=== PATIENT | female | born 1965 | race Caucasian/White ===

== ENCOUNTER 2017-01-09 09:20 | Day surgery (SDC) | payer OTHER ==
[2016-12-30 12:24] VITALS: BMI 27.9
--- NOTE | 2017-01-09 07:30 | HP ---
History & Physical Update - History History: No Change - Physical Physical: No Change - Assessment Assessment: No Change - Plan Plan: No Change (Here today for elective repair of her cervical stenosis (C5-C6 ) and associated radicular pain. This is my first time meeting the patient. I informed her that I will be assisting Dr. Natarajan today. She is fine with it.)
[2017-01-09] MEDS ORDERED: ONDANSETRON 4 MG/2 ML VIAL IVPUSH PRN (10:26)
[2017-01-09] MEDS ORDERED: PROMETHAZINE HCL 25 MG/1 ML VIAL IVPUSH PRN (10:26)
[2017-01-09] MEDS ORDERED: CEFAZOLIN 2 GM in DEXTROSE 5%-WATER - 100 ML IVPB ONE (10:32)
[2017-01-09] MEDS: oxyCODONE HCL 10 MG SUSTAINED ACTING TABLET PO STA (10:40)
[2017-01-09] MEDS ORDERED: GELATIN, ABSORBABLE 100 EACH SPONGE TP ONE (11:04)
[2017-01-09] MEDS ORDERED: LIDOCAINE 1%-EPI 1:100,000 30 ML MDV IJ ONE (11:04)
[2017-01-09] MEDS ORDERED: THROMBIN (BOVINE) 5,000 UNIT VIAL TP ONE (11:04)
[2017-01-09] MEDS ORDERED: PROPOFOL 20 ML ONE ×10 (11:23→12:59)
[2017-01-09] MEDS ORDERED: MIDAZOLAM HCL 2 MG/2 ML SINGLE DOSE VIAL ONE (11:23)
[2017-01-09] MEDS ORDERED: ROCURONIUM BROMIDE 50 MG/5 ML VIAL ONE (11:23)
[2017-01-09] MEDS ORDERED: LIDOCAINE HCL/PF 2% SDV 5ML VIAL ONE (11:24)
[2017-01-09] MEDS ORDERED: ceFAZolin SODIUM 1 GM VIAL ONE (11:46)
[2017-01-09] MEDS ORDERED: ONDANSETRON 4 MG/2 ML VIAL ONE (11:51)
[2017-01-09] MEDS ORDERED: KETOROLAC TROMETHAMINE 30 MG/1 ML VIAL ONE (11:51)
[2017-01-09] MEDS ORDERED: DEXAMETHASONE SOD PHOSPHATE 4 MG/1 ML VIAL ONE (11:51)
[2017-01-09] MEDS ORDERED: HYDROmorphone HCL/PF 1 MG/ML VIAL (FOR PYXIS CHARGING ONLY) ONE (11:56)
[2017-01-09] MEDS ORDERED: PHENYLEPHRINE HCL 10 MG/1 ML SINGLE DOSE VIAL ONE (12:15)
[2017-01-09] MEDS ORDERED: ONDANSETRON 4 MG/2 ML VIAL IVPB PRN (13:54)
[2017-01-09] MEDS ORDERED: oxyCODONE HCL 5 MG TABLET PO PRN ×2 (13:54)
[2017-01-09] MEDS ORDERED: morphine CARPU-JECT 4 MG/1 ML DISP.SYRIN IVPUSH PRN (13:54)
[2017-01-09] MEDS ORDERED: ACETAMINOPHEN 1000 MG/100 ML VIAL (NON FORMULARY) IVPB PRN (13:56)
[2017-01-09] MEDS ORDERED: diazePAM 5 MG TABLET PO PRN (13:56)
[2017-01-09] MEDS ORDERED: METAXALONE 800 MG PO PRN (13:57)
[2017-01-09] MEDS ORDERED: LACTATED RINGERS SOLUTION 1,000 ML IV SCH (14:00)
--- NOTE | 2017-01-09 14:02 | OP ---
Operative Note - Note: Operative Date: 01/09/17 Pre-Operative Diagnosis: Cervical stenosis C5-C6 with radiculopathy Operation: ACDF C5-C6 with neuromonitoring Post-Operative Diagnosis: Same as Pre-op Surgeon: Mil Natarajan [facility] Counsel: Jabari Morales Anesthesiologist/USER EXPERIENCE RESEARCHER: Kitty Darby Anesthesia: General Specimens Removed: C5-C6 disc Estimated Blood Loss (mls): 5 Fluid Volume Replaced (mls): 900 Operative Report Dictated: Yes
--- NOTE | 2017-01-09 14:04 | SURG ---
Surgery Banding Machine Operator Note Banding Machine Operator: Jabari Morales PA-C Date of Service: 01/09/17 Diagnosis: Cervical stenosis with radiculopathy Procedure: Anterior cervical discectomy with fusion C5-C6 under neuromonitoring I was present for the entirety of the operative procedure. For further detail, please refer to operative report. Visit type - Case Type Case Type: Scheduled Admission - New patient This patient is new to me today: Yes Date on this admission: 01/09/17
[2017-01-09] MEDS ORDERED: diazePAM CARPU-JECT 10 MG/2 ML DISP.SYRIN ONE (14:25)
[2017-01-09] MEDS: diazePAM CARPU-JECT 10 MG/2 ML DISP.SYRIN IVPUSH ONE (14:27)
[2017-01-09] MEDS: metFORMIN HCL 500 MG TABLET (FP) PO SCH (16:30)
[2017-01-09] MEDS: CEFAZOLIN 1 GM/D5W 50 ML IVPB SCH (18:36)
[2017-01-09] MEDS ORDERED: ATORVASTATIN CA 20 MG TABLET (FP) PO SCH (22:00)
[2017-01-09] MEDS ORDERED: FLUTICASONE PROP 0.05% 16 GM NASAL SPRAY NS SCH (22:00)
[2017-01-10 02:04] VITALS: TEMP 98.3
[2017-01-10] MEDS: CEFAZOLIN 1 GM/D5W 50 ML IVPB SCH (02:19)
[2017-01-10 06:17] VITALS: BP 126/58; PULSE 74
[2017-01-10] MEDS: metFORMIN HCL 500 MG TABLET (FP) PO SCH (06:17)
--- NOTE | 2017-01-10 07:56 | OP ---
DATE OF OPERATION: 01/09/2017 PREOPERATIVE DIAGNOSIS: Cervical stenosis C5-C6. POSTOPERATIVE DIAGNOSIS: Cervical stenosis C5-C6. PROCEDURE PERFORMED: 1. Anterior cervical discectomy and fusion C5-C6. 2. Placement of instrumentation. 3. Placement of prosthetic cage. SURGEON: Mil Natarajan MD SURGICAL RN: EDDIE Borjas ESTIMATED BLOOD LOSS: 50 mL. IV FLUIDS: Per Anesthesia. ANESTHESIA: General. COMPLICATIONS: None. DISPOSITION: Patient brought to the PACU in stable condition. INDICATIONS FOR SURGERY: The patient is a 51-year-old female who has been suffering from pain from her neck down to her right arm. X-rays and MRI were completed, which noted that she had a cervical stenosis at C5-C6. She had gone through an exhaustive course of treatment which included medications, physical therapy, as well as injections. Unfortunately, her pain continued to persist despite all this. At this point, risks, benefits, and alternatives were discussed, and the patient consented to surgery. OPERATIVE NOTE: Patient was brought into the operating room by the Anesthesia staff. After appropriate patient identification was performed, general anesthesia was administered. Appropriate anesthetic lines were placed, SCDs were placed on the patient, neuromonitoring leads were attached. She was placed supine on the OR bed with her arms tucked into the sides. A shoulder roll was placed underneath the shoulder to the point that she could tolerate in the preoperative holding area. A needle was taped onto her neck to juan off the C5-C6 level. An x-ray was taken to confirm this was correct. The needle was removed, and 10 mL of lidocaine with epinephrine was injected into her neck at this time. Her neck was prepped and draped in the usual sterile manner. At this point, a time-out was completed. An incision was made in the left side of her neck. Dissection was carried down to the platysma. The platysma was cut in line with the skin incision. Next, internally rotated sternocleidomastoid as well as strap muscles was developed. Next, an internally rotated carotid sheath as well as trachea esophagus was developed. Peanuts were used to elevate off the prevertebral fascia. A needle was placed into the C5-C6 disc. An x-ray was taken to confirm this was correct. The needle was removed. [place] pins were placed into the body of C5 and placed into the body of C6. A knife was used to incise the disc, and distraction was applied. At this point, the microscope was brought in. Using a series of pituitaries, Kerrrisons, and curettes, a discectomy was completed. The endplates were decorticated at this time. A size 7 cage filled with bone graft was placed in. [place] pins were removed. A screw was placed in the body of C5. A screw was placed into the body of C6. AP and lateral x-rays confirmed the instrumentation to be in good position. Final tightening was performed. The platysma was closed with 2-0 Vicryl suture. Skin was closed with 3-0 Monocryl suture. Dermabond was applied. Steri-Strips were applied. Sterile dressings were applied. Patient was placed supine on the OR bed, extubated in the OR, and brought to the PACU in stable condition. Jacques [id number]
--- NOTE | 2017-01-10 08:28 | DS ---
Physical Exam: SUBJECTIVE: Patient seen and examined states that her right arm pain is improved. OBJECTIVE: Vital Signs Temperature 98.3 F 01/10/17 06:15 Pulse Rate 74 01/10/17 06:15 Respiratory Rate 18 01/10/17 06:15 Blood Pressure 126/58 01/10/17 06:15 O2 Sat by Pulse Oximetry (%) 100 01/10/17 06:15 PHYSICAL EXAM GENERAL: The patient is awake, alert, and fully oriented, in no acute distress. HEAD: Normal with no signs of trauma. NECK: Trachea midline, full range of motion, supple. Dressing removed and area c /d/i with steri-strips. No ecchymosis or swelling noted. No stridor. LUNGS: Breath sounds equal, clear to auscultation bilaterally, no wheezes, no crackles, no accessory muscle use. HEART: Regular rate and rhythm, S1, S2 without murmur, rub or gallop. EXTREMITIES: 2+ pulses, warm, well-perfused, no edema. No calf tenderness. NEUROLOGICAL: Process Treater strength equal b/l. shrugs shoulder symmetrical. Normal speech, gait not observed. PSYCH: Normal mood, normal affect. SKIN: Warm, dry, normal turgor, no rashes or lesions noted. POC Glucometer 118 UNITS (()) 01/09/17 13:36 HOSPITAL COURSE: Date of Admission:01/09/17 Date of Discharge: 01/10/17 The patient was admitted to the Med-Surg Unit after an elective repair of their cervical stenosis. Now, s/p anterior cervical fusion C5-C6. The day of surgery, the patient ambulated the hallways with assistance. Narcotic and non-narcotic pain management control was achieved with an oral and IV approach. POD #1, the surgical drain was removed fully intact and without incident. An xray was obtained and confirmed hardware placement at C5-C6, no fractures or dislocations. Yari-operative IV ABX were administered. DVT prophylaxis was achieved with SCDs and early ambulation. The patient ambulated with Physical Therapy and no services were recommended upon discharge. Narcotic scripts and or muscle relaxants were checked with [employer] prior to escibe. The discharge instructions and an oral pain management plan were reviewed with the patient. All questions answered. Above plan discussed with Dr. Natarajan and agreed. Minutes to complete discharge: 20 <Metzen,Moon - Last Filed: 01/11/17 14:06> Physical Exam: SUBJECTIVE: Patient seen and examined OBJECTIVE: Vital Signs Temperature 98.3 F 01/10/17 06:15 Pulse Rate 74 01/10/17 06:15 Respiratory Rate 18 01/10/17 09:00 Blood Pressure 126/58 01/10/17 06:15 O2 Sat by Pulse Oximetry (%) 100 01/10/17 09:00 PHYSICAL EXAM GENERAL: The patient is awake, alert, and fully oriented, in no acute distress. HEAD: Normal with no signs of trauma. EYES: PERRL, extraocular movements intact, sclera anicteric, conjunctiva clear. ENT: Ears normal, nares patent, oropharynx clear without exudates, moist mucous membranes. NECK: Trachea midline, full range of motion, supple. LUNGS: Breath sounds equal, clear to auscultation bilaterally, no wheezes, no crackles, no accessory muscle use. HEART: Regular rate and rhythm, S1, S2 without murmur, rub or gallop. ABDOMEN: Soft, nontender, nondistended, normoactive bowel sounds, no guarding, no rebound, no hepatosplenomegaly, no masses. EXTREMITIES: 2+ pulses, warm, well-perfused, no edema. NEUROLOGICAL: Cranial nerves II through XII grossly intact. Normal speech, gait not observed. PSYCH: Normal mood, normal affect. SKIN: Warm, dry, normal turgor, no rashes or lesions noted. LABS CBC,CMP POC Glucometer 118 UNITS (()) 01/09/17 13:36 HOSPITAL COURSE: Date of Admission:01/09/17 Date of Discharge: 01/12/17 The patient was admitted to the Med-Surg Unit after an elective repair of their herniated disc. Now, s/p ACDF . The day of surgery, the patient ambulated the hallways with assistance. Narcotic and non-narcotic pain management control was achieved with an oral and IV approach. POD #1, the surgical drain was removed fully intact and without incident. An xray was obtained and confirmed hardware placement at C5-6, no fractures or dislocations. Yari-operative IV ABX were administered. DVT prophylaxis was achieved with SCDs and early ambulation. The patient ambulated with Physical Therapy and no services were recommended upon discharge. Narcotic scripts and or muscle relaxants were checked with [place] [employer] prior to escibe. The discharge instructions and an oral pain management plan were reviewed with the patient. All questions answered. Above plan discussed with Dr. Natarajan and agreed. Patient seen and examined Agree with above D/C Planning <Mil Natarajan - Last Filed: 01/12/17 11:54> Visit type - Case Type Case Type: Scheduled Admission - Emergency Emergency Visit: No - New patient This patient is new to me today: Yes Date on this admission: 01/11/17 - Critical Care Critical Care patient: No Total Critical Care Time: 20 <Moon Patricio - Last Filed: 01/11/17 14:06>
[2017-01-10] MEDS ORDERED: DULoxetine HCL 30 MG CAPSULE.DR (FP) PO SCH (10:00)
[2017-01-10] MEDS ORDERED: DULoxetine HCL 60 MG CAPSULE.DR PO SCH (10:00)
--- NOTE | 2017-01-10 10:04 | PN ---
Progress Note, Physician Chief Complaint: Anesthesiology post of check S/P ACDF under general anesthesia History of Present Illness: post op day one - Current Medication List Current Medications: Active Medications Non-Formulary Medication (Metaxalone [Metaxall]) 800 mg PO BID PRN PRN Reason: NECK PAIN - Objective Vital Signs: Vital Signs Temperature 98.3 F 01/10/17 06:15 Pulse Rate 74 01/10/17 06:15 Respiratory Rate 18 01/10/17 06:15 Blood Pressure 126/58 01/10/17 06:15 O2 Sat by Pulse Oximetry (%) 100 01/10/17 06:15 Constitutional: Yes: Well Nourished Cardiovascular: Yes: WNL Respiratory: Yes: WNL Gastrointestinal: Yes: WNL Assessment/Plan Patient doing well, no anesthetic complaints of complications. Dept of anesthesia will sign off care at this time
[2017-01-10] MEDS: LACTATED RINGERS SOLUTION 1,000 ML IV SCH ×2 (11:44→11:45)
[2017-01-10] MEDS: diazePAM CARPU-JECT 10 MG/2 ML DISP.SYRIN IVPUSH ONE (11:44)
[2017-01-10] MEDS: oxyCODONE HCL 10 MG SUSTAINED ACTING TABLET PO STA (11:45)
--- NOTE | 2017-01-11 12:25 | PATH ---
Surgical Pathology Report Patient Name: TEE KIMBROUGH [facility]. Rec. #: [id number] /Age/Gender: 1965 (Age: 51) / F Account: [id number] Location: [facility] AMBUL[facility]ORY Taken: 01/09/2017 Received: 01/09/2017 Reported: 01/11/2017 Physicians: Mil Natarajan M.D. Specimen(s) Received C5-C6 DISC Clinical History Cervical spinal stenosis Final Diagnosis C5-6 DISC, DISCECTOMY: CARTILAGE WITH DEGENERATIVE CHANGES. Electronically Signed Marci Mathias M.D. Gross Description Received in formalin labeled "C5-6 disc," is a 2.0 x 1.8 x 0.4 cm aggregate of stringer fragments of fibrocartilaginous tissue. A outbound call center representative portion is submitted in one cassette. /01/10/201701/10/2017
== END 2017-01-10 09:59 | disposition home or self-care (01) ==
LOC: FASU 09:20 → FM/S 16:55 → FASU 01-10 09:59
PROVIDERS: ATTEND Orthopaedic Surgery Orthopaedic Surgery of the Spine
PROC: 0RG10A0 Fusion of Cervical Vertebral Joint with Interbody Fusion Device, Anterior Approach, Anterior Column, Open Approach (ICD-10-PCS; 2017-01-09)
PROC: 0RG10K0 Fusion of Cervical Vertebral Joint with Nonautologous Tissue Substitute, Anterior Approach, Anterior Column, Open Approach (ICD-10-PCS; 2017-01-09)
PROC: 0RB30ZZ Excision of Cervical Vertebral Disc, Open Approach (ICD-10-PCS; principal; 2017-01-09 12:15)
DX: M48.02 Spinal stenosis, cervical region (principal)
CPT/HCPCS: 72050-TC; 76000-TC; 88304-TC; 94010; 94760